=== PATIENT | male | born 1945 | race Caucasian/White ===

== ENCOUNTER 2016-08-06 15:59 | Inpatient (IN) ==
[2016-08-06] MEDS ORDERED: PANTOPRAZOLE 40 MG VIAL IV STA (17:24)
[2016-08-06] MEDS ORDERED: SODIUM CHLORIDE 0.9% 500 ML IV STA (17:24)
[2016-08-06] MEDS ORDERED: ONDANSETRON 4 MG/2 ML VIAL IV STA (17:24)
[2016-08-06 17:28] LABS: Basophils # 0.1 10*3/uL (0.0-0.2); Basophils % 0.8 % (0.0-0.8); Eosinophils # 0.3 10*3/uL (0.0-0.87); Hemoglobin 14.2 GM/DL (14.0-18.0); Immature Granulocytes % 0.3 %; Immature Granulocytes Absolute 0.02 #; Lymphocytes # 2.2 10*3/uL (1.4-4.0); Lymphocytes % 33.8 % (21.2-54.2); Mean Corpuscular HGB Conc 34.6 GM/DL (32-36); Mean Corpuscular Hemoglobin 30 PG (27-34); Mean Corpuscular Volume 87.2 FL (87-102); Mean Platelet Volume 10.8 FL (9.6-12.0); Monocytes # 0.5 10*3/uL (0.11-0.8); Monocytes % 7.3 % (1.7-12.7); Neutrophils # 3.5 10*3/uL (1.4-7.4); Neutrophils % 53.8 % (38.7-73.9); Platelet Count 230 T/CUMM (130-400); Red Cell Distribution Width 13.7 % (9.3-17.3); White Blood Count 6.5 T/CUMM (4-12)
[2016-08-06] MEDS ORDERED: ONDANSETRON 4 MG/2 ML VIAL ONE (17:36)
[2016-08-06] MEDS ORDERED: PANTOPRAZOLE 40 MG VIAL IV ONE (17:36)
[2016-08-06 17:41] LABS: INR 2.7
[2016-08-06 17:43] LABS: PT Patient Result 29.9 SECS
--- NOTE | 2016-08-06 17:51 | Emergency Department Note ---
IAbdullahi Kasabria, am scribing for, and in the presence of, Luke Reed MD 17:28. Derek Rivas Charles R, MD, personally performed the services described in this documentation, ascribed by Ivan Fernando in my presence, and it is both accurate and complete [id number] . Arrival - Arrival Chief Complaint: GI Bleed/Rectal Stated Complaint: passing blood ED Nursing Triage Note: THERAPUETIC INR YESTERDAY, ON COUMADIN FOR PE, ACUTE ONSET OF CONSTANT RECTAL BLEEDING Mode of Arrival: Ambulatory Limitations: No Limitations Source: Patient Time Seen by Provider: 08/06/16 17:13 - History of Present Illness HPI Narrative: This is a 71 y/o white male presenting to the ED with c/o rectal bleeding that onset this morning. Pt states he was using the bathroom and he thought it was watery diarrhea but it was bright red blood when he looked in the toilet. Pt was diagnosed with internal hemorrhoids. Family states the pt was dizzy earlier and while in the waiting room. He is taking Coumadin for his PE that was found 2 months ago. Therapeutic INR was 3.8 yesterday. He denies nausea, vomiting, vision change, DAUGHERTY, abdominal pain, back pain, and dysuria. His PMHx is consistent with prostate problems, hypglycemia, and PE. Consistency: constant Severity: moderate Allergies/Adverse Reactions: Allergies Allergy/AdvReac Type Severity Reaction Status Date / Time Penicillins Allergy Verified 11/14/15 09:52 Home Medications: Home Medications Medication Instructions Recorded Confirmed Type ALPRAZolam [Xanax] 1 mg PO TID PRN 07/22/14 08/06/16 History Oxycodone HCl/Acetaminophen 1 each PO Q6H PRN 07/22/14 08/06/16 History [Percocet 10-325 mg Tablet] Linaclotide [Linzess] 290 mcg PO DAILY 05/15/16 08/06/16 History Tamsulosin [Flomax] 0.4 mg PO BID 05/15/16 08/06/16 History Warfarin [Coumadin] 2.5 mg PO QOTHER DAY@1800 08/06/16 08/06/16 History Warfarin [Coumadin] 5 mg PO QOTHER DAY@1800 08/06/16 08/06/16 History Review of System - Review of System 12 point system: reviewed and no additional remarkable complaints except as stated - Review of System Constitutional: Absent: chills, fever, weakness Eyes: Absent: vision change Head/Ears/Nose/Throat: Absent: nasal drainage Respiratory: Absent: cough, wheezing Cardiovascular: Absent: chest pain, dyspnea on exertion Gastrointestinal: Present: hematochezia. Absent: abdominal pain, nausea, vomiting Genitourinary male: Absent: dysuria Musculoskeletal: Absent: arm pain, back pain, leg pain, neck pain Skin: Absent: rash Neurological: Present: vertigo. Absent: headache, weakness, numbness, confusion Psychiatric: Absent: anxiety Endocrine: Absent: fatigue Hematological/Lymphatic: Absent: easy bleeding Allergic/Immunologic: Absent: facial swelling Medical,Surgical,& Family Hx - Medical History Cardio: No history of: CAD, Hypertension Psychological: History of: Anxiety Disorders Neurology: No history of: Seizures HEENT: History of: Eye Problem (cataracts removed), HEENT Problems (sinus; polyps in nose) Endocrine: History of: Endocrine Problems (hypoglycemia) No history of: Diabetes Mellitus (IDDM), Diabetes Mellitus (NIDDM), Dyslipidemia, Thyroid Disorder Respiratory: History of: Pulmonary Embolism Genitourinary: History of: Prostate Problems Gastrointestinal: History of: Diverticulitis/ Diverticulosis, GERD, Hemorrhoids Comment Only: GI Problems (hiatal hernia) Musculoskeletal: History of: Back/Neck Problems, Musculoskeletal Problems ( crushed right foot) Other: No history of: Anesthesia Reactions - Surgical History Cardiac Surgeries: Patient Denies: Cardiac Catheterization HEENT Surgeries: Surgical HX of: Eye Surgery (cataracts), Tonsilectomy & Adenoidectomy Abdominal Surgeries: Surgical HX of: Appendectomy, Cholecystectomy, Colonoscopy Patient denies: EGD Reproductive Surgeries: Patient denies;: Prostate Surgery Orthopedic Surgeries: Surgical HX of;: Orthopedic Surgery (rtc repair left shoulder) - Family History Family History: Reports;: Family Diabetes (daughter, father), Family Heart Disease (mother, father) Denies;: Family Anesthesia Reaction, Family Cancer, Family Hypertension, Family Psychiatric Problems, Family Stroke - Social History Smoking Status: Never smoker Exam Vital Signs: Vital Signs Temperature 98.4 F 08/06/16 17:30 Pulse Rate 65 08/06/16 17:30 Respiratory Rate 18 08/06/16 17:30 Blood Pressure 145/87 08/06/16 17:30 O2 Sat by Pulse Oximetry 95 08/06/16 16:08 - General General appearance: alert, in no apparent distress - Head Head exam: Present: atraumatic, normocephalic, normal inspection - Eye Eye exam: Present: normal appearance, PERRL, EOMI - ENT ENT exam: Present: normal exam, normal oropharynx, mucous membranes moist, TM's normal bilaterally, normal external ear exam - Neck Neck exam: Present: normal inspection, full ROM, trachea midline. Absent: tenderness - Chest Chest inspection: Present: normal inspection, symmetric chest wall rise. Absent : tenderness - Respiratory Respiratory exam: Present: normal lung sounds bilaterally - Cardiovascular Cardiovascular exam: Present: regular rate, normal rhythm, normal heart sounds - Abdominal Exam Abdominal exam: Present: soft, normal bowel sounds. Absent: distention, tenderness - Rectal Exam Rectal exam: Present: heme (+) stool, hemorrhoids (one internal ) - Extremities Exam Extremities exam: Present: normal inspection, full ROM, normal capillary refill. Absent: tenderness, pedal edema, calf tenderness - Back Exam Back exam: Present: normal inspection, full ROM. Absent: tenderness - Neurological Exam Neurological exam: Present: alert, oriented X3, CN II-XII intact, normal gait, reflexes normal - Psychiatric Psychiatric exam: Present: normal affect, normal mood - Skin Skin exam: Present: warm, dry, intact, normal color. Absent: rash, diaphoresis Course - Consultations Consultation #1: Hospitalist will admit patient Time: 17:58 Results - Labs CBC & BMP: 08/06/16 17:22 Lab Results: I have reviewed the patients labs Disposition Clinical Impression: Chronic anticoagulation, History of PE, Generalized weakness, Lower GI bleed, Elevated INR Case discussed with: patient, patient's family Disposition: Still a Patient Condition: Stable Time of Disposition: 18:01
--- NOTE | 2016-08-06 17:53 | XRay Report ---
XR chest 1V portable Indication: Shortness of breath Comparison: Chest x-ray 07/01/2016 CT chest 05/16/2016. Technique: Portable AP chest was performed. Findings: The heart size appears within normal limits. The mediastinal contour and hilar structures demonstrate no significant abnormalities. Focal airspace opacification lower right chest has changed little since comparison study and could reflect evidence of asymmetric nipple shadow, focal atelectasis or other focal airspace disease including scarring.. Bones and soft tissues demonstrate no evidence of acute pathology. Impression: 1. Small focus of airspace opacification suggested in the lower right chest has changed little since the comparison radiograph. Lungs otherwise are clear and demonstrate no evidence of acute pathology. 2. Pulmonary vasculature appears fairly symmetric. There are no suggested oligemic regions of the lung. 08/06/2016 5:48 PM PROCEDURE INTERPRETED AT [facility] DEPARTMENT OF RADIOLOGY Final Report Signed by: Dr. Bright Acevedo
--- NOTE | 2016-08-06 17:54 | XRay Report ---
XR abdomen complete w decub Indication: Abdominal pain Comparison: Abdominal series 05/16/2016 Technique: Supine AP abdomen as well as left lateral decubitus image of the abdomen was submitted. Findings: Lung bases are clear. No free intraperitoneal air is suggested. Liver is upper limits of normal in size. No splenomegaly is suggested.. The bowel gas pattern demonstrates no evidence of acute pathology. Bones and soft tissues demonstrate no evidence of acute pathology. Scoliotic deformity of the upper lumbar spine is stable. Surgical absence of the gallbladder appears stable. Impression: 1. No active process is demonstrated within the abdomen or pelvis. Stable appearance of abdomen and pelvic contents since comparison. 08/06/2016 5:50 PM PROCEDURE INTERPRETED AT [facility] DEPARTMENT OF RADIOLOGY Final Report Signed by: Dr. Bright Acevedo
[2016-08-06 18:06] LABS: Alanine Aminotransferase 17 U/L (16-61); Alkaline Phosphatase 95 U/L (45-117); Aspartate Amino Transferase 15 U/L (0-37); Blood Urea Nitrogen 13 MG/DL (7-18); Calcium 8.8 MG/DL (8.5-10.1); Glucose 93 MG/DL (74-106); Magnesium 2.5 MG/DL (1.8-2.4); Osmolality,Calculated 278.4 MOS/KG (273-304); Potassium 3.9 MMOL/L (3.5-5.1); Sodium 140 MMOL/L (136-145); Total Protein 7.4 G/DL (6.4-8.3); Troponin I Only < 0.015 NG/ML (0.00-0.045)
--- NOTE | 2016-08-06 18:22 | Hospitalist History & Physical ---
Assessment and Plan (1) Chronic anticoagulation Status: Acute Assessment and plan: INR on admission at 2.7; a significant decline from 3.8 on yesterday. Will recheck INR in AM. Monitor for further episodes of melena. Current Visit: Yes (2) Lower GI bleed Status: Acute Assessment and plan: Although, H/H is stable at 14.2/41.0; we will obtain serial H/H. Will transfuse if needed. Current Visit: Yes History of Present Illness Chief complaint: rectal bleeding History of present illness: This is a very pleasant 71 year old male that presented to the ED at [facility] for evaluation of rectal bleeding. The patient has a very complex medical history significant for pulmonary embolism, benign prostatic hypertrophy, diverticulitis, hypoglycemia, and internal hemmohorrids. The patent reports an onset of the presenting symptoms on this morning when he was having a bowel movement. He reports that is was bright red in color and watery in consistency. In addition, the patient reports an episode of vertigo awhile afterwards. In recent months, the patient was diagnosed with a pulmonary embolism and is currently taking coumadin. He was seen by his PCP on yesterday and reports that his INR was 3.8. He became concerned and came to the ED for further evaluation. Digital rectal examination was positive for the presence of occult blood. Labs were obtained which noted his INR at 2.7 and hemoglobin at 14.0, and hematacrit of 41.0.; labs were essentially unremarkable. After brief discussion with both Dr. Reed and Dr. Fontenot, the patient will be admitted to the hospitalist service for continuation of care. Home Medications Medication Instructions Recorded Confirmed Type ALPRAZolam [Xanax] 1 mg PO TID PRN 07/22/14 08/06/16 History Oxycodone HCl/Acetaminophen 1 each PO Q6H PRN 07/22/14 08/06/16 History [Percocet 10-325 mg Tablet] Linaclotide [Linzess] 290 mcg PO DAILY 05/15/16 08/06/16 History Tamsulosin [Flomax] 0.4 mg PO BID 05/15/16 08/06/16 History Warfarin [Coumadin] 2.5 mg PO QOTHER DAY@1800 08/06/16 08/06/16 History Warfarin [Coumadin] 5 mg PO QOTHER DAY@1800 08/06/16 08/06/16 History Allergies Allergy/AdvReac Type Severity Reaction Status Date / Time Penicillins Allergy Verified 11/14/15 09:52 Medical,Surgical,& Family Hx - Medical History Cardio: No history of: CAD, Hypertension Psychological: History of: Anxiety Disorders Neurology: No history of: Seizures HEENT: History of: Eye Problem (cataracts removed), HEENT Problems (sinus; polyps in nose) Endocrine: History of: Endocrine Problems (hypoglycemia) No history of: Diabetes Mellitus (IDDM), Diabetes Mellitus (NIDDM), Dyslipidemia, Thyroid Disorder Respiratory: History of: Pulmonary Embolism Genitourinary: History of: Prostate Problems Gastrointestinal: History of: Diverticulitis/ Diverticulosis, GERD, Hemorrhoids Comment Only: GI Problems (hiatal hernia) Musculoskeletal: History of: Back/Neck Problems, Musculoskeletal Problems ( crushed right foot) Other: No history of: Anesthesia Reactions - Surgical History Cardiac Surgeries: Patient Denies: Cardiac Catheterization HEENT Surgeries: Surgical HX of: Eye Surgery (cataracts), Tonsilectomy & Adenoidectomy Abdominal Surgeries: Surgical HX of: Appendectomy, Cholecystectomy, Colonoscopy Patient denies: EGD Reproductive Surgeries: Patient denies;: Prostate Surgery Orthopedic Surgeries: Surgical HX of;: Orthopedic Surgery (rtc repair left shoulder) - Family History Family History: Reports;: Family Diabetes (daughter, father), Family Heart Disease (mother, father) Denies;: Family Anesthesia Reaction, Family Cancer, Family Hypertension, Family Psychiatric Problems, Family Stroke - Social History Smoking Status: Never smoker Exam - Constitutional Vitals: Period Temp Pulse Resp BP Sys/Noel Pulse Ox Last 24 Hr 98.4 F-98.4 F 65-65 16-18 145-145/87-87 95 General appearance: normal weight, no acute distress - Head Head exam: Present: normal inspection, normocephalic, atraumatic - Eye Eye exam: Present: EOMI. Absent: conjunctival injection Pupils: Present: TD, normal accommodation - ENT ENT exam: Present: normal exam, normal external ear exam, normal oropharynx - Neck Neck exam: Present: normal inspection. Absent: lymphadenopathy, meningismus, thyromegaly - Respiratory Respiratory exam: Present: clear to auscultation bilaterally. Absent: rales, rhonchi, stridor, wheezes - Cardiovascular Cardiovascular exam: Present: regular rate and rhythm. Absent: carotid bruit, diastolic murmur, gallop, JVD, rubs, systolic murmur - GI/Abdominal GI/Abdominal exam: Present: normal bowel sounds, soft. Absent: firm, guarding - Extremities Exam Extremities exam: Present: normal inspection, normal capillary refill, full ROM. Absent: calf tenderness, edema - Back Exam Back exam: Present: normal inspection - Neurological Exam Neurological exam: Present: alert, oriented X3, CN II-XII intact - Psychiatric Psychiatric exam: Present: normal affect, normal mood - Skin Skin exam: Present: normal color, warm, dry Results - Labs CBC & BMP: 08/06/16 17:22 08/06/16 17:22 Lab Results: I have reviewed the past 24 hour labs
[2016-08-06] MEDS ORDERED: MORPHINE 2 MG/1 ML SYRINGE IV PRN (19:31)
[2016-08-06] MEDS ORDERED: ZALEPLON 5 MG CAPSULE PO PRN (19:31)
[2016-08-06] MEDS ORDERED: ONDANSETRON 4 MG/2 ML VIAL IV PRN (19:31)
[2016-08-06] MEDS ORDERED: ACETAMINOPHEN 325 MG TABLET PO PRN (19:31)
[2016-08-06] MEDS: TAMSULOSIN 0.4 MG CAPSULE PO SCH (20:16)
[2016-08-06] MEDS: FAMOTIDINE 20 MG/2 ML VIAL IV SCH (20:16)
[2016-08-06] MEDS: ALPRAZolam 0.5 MG TABLET PO PRN (20:18)
[2016-08-06] MEDS: SODIUM CHLORIDE 0.9% 1,000 ML IV SCH (20:18)
[2016-08-06] MEDS ORDERED: LABETALOL 20 MG/4 ML SYRINGE IV PRN (21:26)
[2016-08-07 04:19] LABS: Basophils % 0.8 % (0.0-0.8); Eosinophils # 0.3 10*3/uL (0.0-0.87); Eosinophils % 6.7 % (0.00-10.9); Hematocrit 35.9 VOL% (42.0-52.0); Hemoglobin 12.3 GM/DL (14.0-18.0); Immature Granulocytes % 0.2 %; Immature Granulocytes Absolute 0.01 #; Lymphocytes # 1.9 10*3/uL (1.4-4.0); Mean Corpuscular HGB Conc 34.3 GM/DL (32-36); Mean Corpuscular Hemoglobin 30 PG (27-34); Mean Corpuscular Volume 86.9 FL (87-102); Mean Platelet Volume 11.1 FL (9.6-12.0); Monocytes # 0.4 10*3/uL (0.11-0.8); Monocytes % 8.5 % (1.7-12.7); Neutrophils # 2.3 10*3/uL (1.4-7.4); Neutrophils % 45.8 % (38.7-73.9); Platelet Count 202 T/CUMM (130-400); Red Blood Count 4.13 MC/CUMM (3.8-5.5); Red Cell Distribution Width 13.4 % (9.3-17.3)
[2016-08-07 04:28] LABS: INR 2.6
[2016-08-07 04:40] LABS: PT Patient Result 28.8 SECS
[2016-08-07 04:55] LABS: Calcium 7.7 MG/DL (8.5-10.1); Magnesium 2.2 MG/DL (1.8-2.4); Osmolality,Calculated 281.1 MOS/KG (273-304); Potassium 3.6 MMOL/L (3.5-5.1)
[2016-08-07] MEDS: LINACLOTIDE 145 MCG CAPSULE PO SCH (08:58)
[2016-08-07] MEDS: FAMOTIDINE 20 MG/2 ML VIAL IV SCH ×2 (08:58→20:39)
[2016-08-07] MEDS: TAMSULOSIN 0.4 MG CAPSULE PO SCH ×2 (08:58→20:39)
[2016-08-07] MEDS: PANTOPRAZOLE 40 MG TABLET PO SCH (08:58)
--- NOTE | 2016-08-07 09:02 | Gastrointestinal Consult Note ---
Assessment and Plan - Time spent with patient Time spent with patient: Greater than 30 minutes (1) Lower GI bleed Status: Acute Current Visit: Yes (2) Other specified counseling Status: Acute Current Visit: Yes History of Present Illness History of present illness: Mr. Gurrola is a 71 year old male Home Medications Medication Instructions Recorded Confirmed Type ALPRAZolam [Xanax] 1 mg PO TID PRN 07/22/14 08/06/16 History Oxycodone HCl/Acetaminophen 1 each PO Q6H PRN 07/22/14 08/06/16 History [Percocet 10-325 mg Tablet] Linaclotide [Linzess] 290 mcg PO DAILY 05/15/16 08/06/16 History Tamsulosin [Flomax] 0.4 mg PO BID 05/15/16 08/06/16 History Warfarin [Coumadin] 2.5 mg PO QOTHER DAY@1800 08/06/16 08/06/16 History Warfarin [Coumadin] 5 mg PO QOTHER DAY@1800 08/06/16 08/06/16 History Allergies Allergy/AdvReac Type Severity Reaction Status Date / Time Penicillins Allergy Verified 11/14/15 09:52 Medical,Surgical,& Family Hx - Medical History Cardio: No history of: CAD, Hypertension Psychological: History of: Anxiety Disorders Neurology: No history of: Seizures HEENT: History of: Eye Problem (cataracts removed), HEENT Problems (sinus; polyps in nose) Endocrine: History of: Endocrine Problems (hypoglycemia) No history of: Diabetes Mellitus (IDDM), Diabetes Mellitus (NIDDM), Dyslipidemia, Thyroid Disorder Respiratory: History of: Pulmonary Embolism Genitourinary: History of: Prostate Problems (enlarged) Gastrointestinal: History of: Diverticulitis/ Diverticulosis, GERD, Hemorrhoids Comment Only: GI Problems (hiatal hernia) Musculoskeletal: History of: Back/Neck Problems, Musculoskeletal Problems ( crushed right foot) Other: No history of: Anesthesia Reactions - Surgical History Cardiac Surgeries: Patient Denies: Cardiac Catheterization HEENT Surgeries: Surgical HX of: Eye Surgery (cataracts), Tonsilectomy & Adenoidectomy Patient denies: Thyroid Surgery Abdominal Surgeries: Surgical HX of: Appendectomy, Cholecystectomy, Colonoscopy Patient denies: EGD Reproductive Surgeries: Patient denies;: Prostate Surgery Orthopedic Surgeries: Surgical HX of;: Orthopedic Surgery (rtc repair left shoulder) - Family History Family History: Reports;: Family Diabetes (daughter, father), Family Heart Disease (mother, father) Denies;: Family Anesthesia Reaction, Family Cancer, Family Hypertension, Family Psychiatric Problems, Family Stroke - Social History Smoking Status: Never smoker Frequency of Alcohol Use: None Type of Drug Use: None Exam - Constitutional Vitals: Period Temp Pulse Resp BP Sys/Noel Pulse Ox Last 24 Hr 97.6 F-97.8 F 53-59 18-20 122-170/74-102 94-98 Results - Labs CBC & BMP: 08/07/16 03:40 08/07/16 03:40 Quality Measures - VTE Contraindication to Pharmacological VTE Prophylaxis: Already on Theraputic Agent , No Prophylaxis Needed - Stroke Symptom Onset Unknown: No Note Addendum: PLEASE NOTE -- automatic citation of patient information is unavoidable in this electronic note. I have made a reasonable effort to review the information cited , but it is not a part of my evaluation, impression, or recommendation unless specifically discussed in the dictated text that follows. As well, voice recognition software was used in the creation of this clinical note. Reasonable effort was made to identify and correct gross errors. Despite proofreading, errors in licensed home inspector may be present, including nonsense verbiage at times. If you encounter such an error, please contact me at [phone] for discussion and correction. -- Hector Chief complaint: gastrointestinal bleeding History of present illness: This is a new patient, a 71-year-old male seen by consultation for evaluation of rectal bleeding. The patient is admitted to the hospitalist service under the care of Dr. Ferraro with a primary diagnosis of lower gastrointestinal bleeding complicated by pharmacologic anticoagulation. The patient was admitted through the emergency department yesterday with primary complaint of bright red blood per rectum beginning yesterday morning. Evaluation at that time revealed hemoglobin greater than 14 g /dL and INR of 2.7. Since his admission no bowel movements have been recorded. He has been treated with crystalloid resuscitation and, in that setting, hemoglobin has dropped to just over 12 g/dL. He has a personal history of pulmonary embolus which is the indication for pharmacologic anticoagulation and has generally been in the therapeutic range on Coumadin. He previously had colonoscopy about six months ago and was told that he has both diverticulosis and hemorrhoids. He has not previously had significant gastrointestinal bleeding. He is comfortable at present. Patient denies fever, chills, night sweats, rigors, headache, dizziness, neck pain, visual changes, redness of the eyes, dysphagia, odynophagia, difficulty chewing, chest pain, shortness of breath, abdominal pain, weight loss, nausea, vomiting, regurgitation, hematemesis, diarrhea, proctalgia, constipation, dysuria, skin changes, temperature regulation issues, flushing, mental status change, numbness/weakness in the extremities, yellowing of the eyes/skin, cutaneous eruptions, family history of gastrointestinal cancer and colon polyps , and other complaints in general. Review of systems: 12 point review of systems was negative except as documented above. Outpatient medications: Xanax, Percocet, Linzess, Flomax, Coumadin Inpatient medications: Tylenol, Xanax, Pepcid, Holt, labetalol, incest, morphine, Zofran, Percocet, Protonix, normal saline infusion, Flomax, Sonata Past Medical History: anxiety disorder, nasal polyps, hypoglycemia, pulmonary embolism, prostate issues, diverticulitis/diverticulosis, gastroesophageal reflux disease, hemorrhoids, hiatus hernia, back and neck pain, prior lower extremity injury Social history: negative tobacco. Negative alcohol Family history: no gastrointestinal cancers Physical examination: Vital Signs: Current vital signs reviewed and documented above. General Appearance: well-appearing. Not acutely ill. Head: Normocephalic. Neck: Palpation of the neck revealed no abnormalities. Eyes: No scleral icterus. No scleral injection. No conjunctival pallor. Oral Cavity: Odor of breath was normal. No drooling was observed. Lips showed no abnormalities. Floor of the mouth showed no abnormalities. Pharynx: Oropharynx was normal. Lungs: Respiration rhythm and depth was normal. Cardiovascular: Heart rate and rhythm were normal. No murmurs were appreciated. Abdomen: abdomen was not distended. Abdominal palpation revealed no tenderness and no hepatosplenomegaly. Ascites was not discovered. Abdominal auscultation revealed positive bowel sounds. Musculoskeletal System: Musculoskeletal system was grossly normal. Neurological: level of consciousness was normal. Speech was normal. Skin: General appearance was normal. Color and pigmentation were normal. No skin lesions. Laboratory: white blood count 5.0, hemoglobin 12.3, hematocrit 35.9, platelets 202, INR 2.6 Radiology: reviewed Impressions: 1. Hematochezia -- the differential diagnosis includes diverticular bleeding, infectious/inflammatory enterocolitis, arteriovenous malformation, hemorrhoidal bleeding, colon polyps (including cancer), and upper gastrointestinal bleeding. I recommend serial hemoglobin and hematocrit monitoring with transfusion as indicated. I recommend continued crystalloid resuscitation as indicated. I recommend intravenous proton pump inhibitor. Patient may need colonoscopy with timing dependent on clinical progress. If bleeding continues, this will likely need to be done during this admission. If not, we could consider outpatient colonoscopy once he is adequately resuscitated and transfused. 2. Other specified counseling -- The patient was seen for greater than 30 minutes. The patient was counseled for greater than 50% of this time regarding differential diagnosis, likely diagnosis, diagnostic and therapeutic alternatives, risks/benefits/alternatives of medications and procedures, and plan of care generally. The patient expressed understanding and wishes to proceed. Recommendations: -- aggressive crystalloid resuscitation -- transfusion as indicated -- serial hemoglobin and hematocrit monitoring -- colonoscopy with timing dependent on clinical progress -- thank you for consultation. We will continue to follow with you.
[2016-08-07] MEDS: ALPRAZolam 0.5 MG TABLET PO PRN ×2 (15:41→23:35)
--- NOTE | 2016-08-07 17:01 | Hospitalist Progress Note ---
Assessment and Plan - Time spent with patient Time spent with patient: Greater than 30 minutes (1) Chronic anticoagulation Status: Acute Assessment and plan: For PE, been on anticoagulation about 2 months. Current Visit: Yes (2) Lower GI bleed Status: Acute Assessment and plan: Likely hemorrhoidal. Defer to GI. Current Visit: Yes Hospitalist: Subjective Interval history: Reports no recurrence in bleeding. Patient would like to stay for further evaluation of rectal bleeding. Exam - Constitutional Vitals: Period Temp Pulse Resp BP Sys/Noel Pulse Ox Last 24 Hr 97.4 F-98.5 F 53-69 18-20 122-170/74-102 92-98 General appearance: no acute distress - Head Head exam: Present: normocephalic, atraumatic - Eye Eye exam: Present: EOMI Pupils: Present: TD - ENT ENT exam: Present: normal exam - Neck Neck exam: Present: normal inspection - Respiratory Respiratory exam: Present: clear to auscultation bilaterally. Absent: rhonchi, wheezes - Cardiovascular Cardiovascular exam: Present: regular rate and rhythm. Absent: gallop, rubs, systolic murmur - GI/Abdominal GI/Abdominal exam: Present: normal bowel sounds, soft. Absent: distended, firm , guarding, tenderness, rebound - Extremities Exam Extremities exam: Present: normal inspection. Absent: calf tenderness, edema Results - Labs CBC & BMP: 08/07/16 03:40 08/07/16 03:40 Lab Results: I have reviewed the past 24 hour labs Quality Measures - VTE Contraindication to Pharmacological VTE Prophylaxis: Already on Theraputic Agent , No Prophylaxis Needed - Stroke Symptom Onset Unknown: No
[2016-08-07] MEDS: SODIUM CHLORIDE 0.9% 1,000 ML IV SCH (18:11)
[2016-08-08] MEDS: SODIUM CHLORIDE 0.9% 1,000 ML IV SCH (01:31)
[2016-08-08 05:17] LABS: Basophils # 0.1 10*3/uL (0.0-0.2); Basophils % 1.1 % (0.0-0.8); Eosinophils # 0.3 10*3/uL (0.0-0.87); Eosinophils % 6.2 % (0.00-10.9); Hematocrit 36.5 VOL% (42.0-52.0); Hemoglobin 12.2 GM/DL (14.0-18.0); Immature Granulocytes % 0.2 %; Immature Granulocytes Absolute 0.01 #; Lymphocytes # 2.1 10*3/uL (1.4-4.0); Lymphocytes % 37.9 % (21.2-54.2); Mean Corpuscular HGB Conc 33.4 GM/DL (32-36); Mean Corpuscular Hemoglobin 29 PG (27-34); Mean Corpuscular Volume 87.5 FL (87-102); Monocytes # 0.4 10*3/uL (0.11-0.8); Monocytes % 7.6 % (1.7-12.7); Neutrophils # 2.6 10*3/uL (1.4-7.4); Platelet Count 203 T/CUMM (130-400); Red Blood Count 4.17 MC/CUMM (3.8-5.5); Red Cell Distribution Width 13.4 % (9.3-17.3); White Blood Count 5.5 T/CUMM (4-12)
[2016-08-08 05:47] LABS: Calcium 7.8 MG/DL (8.5-10.1); Potassium 3.6 MMOL/L (3.5-5.1)
[2016-08-08] MEDS: TAMSULOSIN 0.4 MG CAPSULE PO SCH ×2 (08:36→20:14)
[2016-08-08] MEDS: PANTOPRAZOLE 40 MG TABLET PO SCH (08:36)
[2016-08-08] MEDS: FAMOTIDINE 20 MG/2 ML VIAL IV SCH ×2 (08:36→20:14)
[2016-08-08] MEDS: LINACLOTIDE 145 MCG CAPSULE PO SCH (08:37)
--- NOTE | 2016-08-08 08:55 | Gastrointestinal Progress Note ---
Assessment and Plan (1) Lower GI bleed Status: Acute Current Visit: Yes (2) Other specified counseling Status: Acute Current Visit: Yes Exam (Progress Note) - Constitutional Vitals: Period Temp Pulse Resp BP Sys/Noel Pulse Ox Last 24 Hr 97.1 F-98.5 F 59-72 18-20 124-156/66-93 92-98 Results - Labs CBC & BMP: 08/08/16 04:53 08/08/16 04:53 Note Addendum: PLEASE NOTE -- automatic citation of patient information is unavoidable in this electronic note. I have made a reasonable effort to review the information cited , but it is not a part of my evaluation, impression, or recommendation unless specifically discussed in the dictated text that follows.~ As well, voice recognition software was used in the creation of this clinical note. Reasonable effort was made to identify and correct gross errors. Despite proofreading, errors in aviation project manager may be present, including nonsense verbiage at times. If you encounter such an error, please contact me at for discussion and correction. -- Hector Chief complaint: gastrointestinal bleeding History of present illness: This is a 71-year-old male seen for follow-up of rectal bleeding. No bowel movements have been documented overnight. Blood counts are stable. The patient reports feeling well. Review of systems: 12 point review of systems was negative except as documented above. Medications: Tylenol, Xanax, Pepcid, [place], labetalol, incest, morphine, Zofran , Percocet, Protonix, normal saline infusion, Flomax, [place] Physical examination:~ Vital Signs: Current vital signs reviewed and documented above.~ General Appearance: well-appearing. Not acutely ill. Head: Normocephalic.~ Neck: Palpation of the neck revealed no abnormalities.~ Eyes: No scleral icterus.~ No scleral injection.~ No conjunctival pallor.~ Oral Cavity: Odor of breath was normal. No drooling was observed. Lips showed no abnormalities. Floor of the mouth showed no abnormalities.~ Pharynx: Oropharynx was normal.~ Lungs: Respiration rhythm and depth was normal.~ Cardiovascular: Heart rate and rhythm were normal. No murmurs were appreciated.~ Abdomen: abdomen was not distended. Abdominal palpation revealed no tenderness and no hepatosplenomegaly. Ascites was not discovered. Abdominal auscultation revealed positive bowel sounds. Musculoskeletal System: Musculoskeletal system was grossly normal.~ Neurological: level of consciousness was normal. Speech was normal. Skin: General appearance was normal. Color and pigmentation were normal. No skin lesions. ~ Laboratory: hemoglobin 12.2, hematocrit 36.5 Radiology: reviewed Impressions:~ 1. Hematochezia -- the differential diagnosis includes diverticular bleeding, infectious/inflammatory enterocolitis, arteriovenous malformation, hemorrhoidal bleeding, colon polyps (including cancer), and upper gastrointestinal bleeding. I recommend serial hemoglobin and hematocrit monitoring with~ transfusion as indicated. I recommend continued crystalloid resuscitation as indicated. I recommend intravenous proton pump inhibitor. After discussion with patient, we will plan on colonoscopy tomorrow. We will do a bowel prep this evening. 2. Other specified counseling --~ The patient was seen for greater than 30 minutes.~ The patient was counseled for greater than 50% of this time regarding differential diagnosis, likely diagnosis, diagnostic and therapeutic alternatives, risks/benefits/alternatives of medications and procedures, and plan of care generally.~ The patient expressed understanding and wishes to proceed. Recommendations: -- aggressive crystalloid resuscitation -- transfusion as indicated -- serial hemoglobin and hematocrit monitoring -- colonoscopy tomorrow -- thank you for consultation. Dr. Barger will assume G.I. care for this patient tomorrow.
[2016-08-08] MEDS: ALPRAZolam 0.5 MG TABLET PO PRN ×2 (11:46→20:14)
[2016-08-08] MEDS ORDERED: BISACODYL 5 MG TABLET PO ONE (12:00)
--- NOTE | 2016-08-08 12:04 | Hospitalist Progress Note ---
Assessment and Plan - Time spent with patient Time spent with patient: Greater than 30 minutes (1) Chronic anticoagulation Status: Acute Assessment and plan: For PE, been on anticoagulation about 2 months. Holding anticoagulation. Current Visit: Yes (2) Lower GI bleed Status: Acute Assessment and plan: Likely hemorrhoidal. Defer to GI. Current Visit: Yes Hospitalist: Subjective Interval history: No complaints or overnight events. Denies BRBPR, melena or hematochezia. Exam - Constitutional Vitals: Period Temp Pulse Resp BP Sys/Noel Pulse Ox Last 24 Hr 97.1 F-98.5 F 59-72 18-59 128-156/66-95 93-98 General appearance: normal weight, no acute distress - Head Head exam: Present: normocephalic, atraumatic - Eye Eye exam: Present: EOMI Pupils: Present: TD - ENT ENT exam: Present: normal exam - Neck Neck exam: Present: normal inspection - Respiratory Respiratory exam: Present: clear to auscultation bilaterally. Absent: rhonchi, wheezes - Cardiovascular Cardiovascular exam: Present: regular rate and rhythm. Absent: gallop, rubs, systolic murmur - GI/Abdominal GI/Abdominal exam: Present: normal bowel sounds, soft. Absent: distended, firm , guarding, tenderness, rebound - Extremities Exam Extremities exam: Present: normal inspection. Absent: calf tenderness, edema Results - Labs CBC & BMP: 08/08/16 04:53 08/08/16 04:53 Lab Results: I have reviewed the past 24 hour labs Quality Measures - VTE Contraindication to Pharmacological VTE Prophylaxis: Already on Theraputic Agent , No Prophylaxis Needed - Stroke Symptom Onset Unknown: No
[2016-08-08] MEDS ORDERED: POLYETHYLENE GLYCOL 3350/ELECTROLYTES 4,000 ML BOTTLE PO ONE (18:00)
[2016-08-08] MEDS ORDERED: MAGNESIUM CITRATE 300 ML BOTTLE PO ONE (21:58)
[2016-08-09 03:03] LABS: Basophils # 0.1 10*3/uL (0.0-0.2); Basophils % 0.8 % (0.0-0.8); Eosinophils # 0.3 10*3/uL (0.0-0.87); Eosinophils % 4.8 % (0.00-10.9); Hematocrit 38.6 VOL% (42.0-52.0); Hemoglobin 12.9 GM/DL (14.0-18.0); Immature Granulocytes % 0.3 %; Immature Granulocytes Absolute 0.02 #; Lymphocytes # 1.9 10*3/uL (1.4-4.0); Lymphocytes % 29.3 % (21.2-54.2); Mean Corpuscular HGB Conc 33.4 GM/DL (32-36); Mean Corpuscular Hemoglobin 29 PG (27-34); Mean Corpuscular Volume 86.9 FL (87-102); Mean Platelet Volume 11.8 FL (9.6-12.0); Monocytes # 0.5 10*3/uL (0.11-0.8); Neutrophils # 3.7 10*3/uL (1.4-7.4); Neutrophils % 56.8 % (38.7-73.9); Platelet Count 223 T/CUMM (130-400); Red Blood Count 4.44 MC/CUMM (3.8-5.5); Red Cell Distribution Width 13.4 % (9.3-17.3); White Blood Count 6.5 T/CUMM (4-12)
[2016-08-09 03:28] LABS: Calcium 8.4 MG/DL (8.5-10.1); INR 1.5; PT Patient Result 16.5 SECS; Partial Thromboplastin Time 36.2 SECS (0-40); Potassium 3.8 MMOL/L (3.5-5.1)
--- NOTE | 2016-08-09 08:00 | EKG Report ---
Stationary ECG Study [facility] Test Date: 08/09/2016 7:59:55 AM Pat Name: ROSA ISELA ABURTO Department: Room: 238 Gender: M Emergency Communications Operator: MYRIAM : 1945 Requested by: Rain Lima Order Number: [id number] Reading MD: TAI STERN Intervals [place] Rate: 54 P: 37 NH: 165 QRS: 52 QRSD: 102 T: -44 QT: 430 QTc: 415 Interpretive Statements SINUS BRADYCARDIA ST DEVIATION AND MODERATE T-WAVE ABNORMALITY, CONSIDER INFERIOR ISCHEMIA Electronically Signed On 08-09-16 11:47:22 CDT by TAI STERN [email or web address]
[2016-08-09] MEDS: PANTOPRAZOLE 40 MG TABLET PO SCH (10:12)
[2016-08-09] MEDS: LINACLOTIDE 145 MCG CAPSULE PO SCH (10:12)
[2016-08-09] MEDS: TAMSULOSIN 0.4 MG CAPSULE PO SCH ×2 (10:13→20:24)
[2016-08-09] MEDS: FAMOTIDINE 20 MG/2 ML VIAL IV SCH ×2 (10:40→21:42)
--- NOTE | 2016-08-09 10:41 | Physician Query Form ---
CLICK EDIT DOCUMENT TO SELECT QUERY ANSWER --> OK --> SIGN Radha Bond RN Clinical [place] W) [phone] (f) [phone] [email or web address]: Make your selection(s) from the choices in EACH section by typing an "x" and enter comments in the comment section. Please use your independent medical judgment in providing your response. This request does not imply that any particular answer is desired or expected. CLINICAL INDICATORS: (Providers should not edit this section) Pt. admitted with rectal bleeding. Based on documentation of "pt was diagnosed with internal hemorrhoids" and "he is taking Coumadin for his PE". INR of 2.7 on admission. Based on the above, could you clarify the appropriate diagnosis, if significant , that supports the above abnormalities and additional evaluation, monitoring, and/or treatment rendered: ( ) Rectal bleeding due to anticoagulant use ( ) Rectal bleeding not due to anticoagulant use ( ) Rectal bleeding due to internal hemorrhoids ( x) Rectal bleeding due to _diverticulosis compounded by anticoagulant use ( ) Other, please specify: ( ) Clinically unable to determine COMMENTS: PLEASE ALSO DOCUMENT RESPONSE IN PROGRESS NOTES AND/OR DISCHARGE SUMMARY Use of terms such as suspected, likely, or probable (associated with a specific diagnosis that is being evaluated, monitored, or treated as if it exists) are acceptable and can be restated in the discharge summary if not ruled out. MTDD
[2016-08-09] MEDS ORDERED: LIDOCAINE 2% 5 ML VIAL ONE (13:06)
[2016-08-09] MEDS ORDERED: PROPOFOL 200 MG/20 ML VIAL IV ONE (13:06)
[2016-08-09] MEDS ORDERED: GLYCOPYRROLATE 0.4 MG/2 ML VIAL ONE (13:06)
--- NOTE | 2016-08-09 13:10 | History and Physical Update ---
History and Physical Update - History and Physical H&P was reviewed, the patient examined and there: are no changes in the patients condition since last H&P was completed. - Physical Exam Mental Status: alert and oriented Heart: regular rate and rhythm Lung: clear to auscultation Abdomen: within normal limits Vitals: within normal limits History and Physical Changes: 71-year-old male is admitted with lower GI bleeding which occurred in the setting of Coumadin therapy with INR of 2.7. His bleeding appears to have stopped in the last 24 hours. His INR has been corrected.
--- NOTE | 2016-08-09 13:30 | Operative Note ---
Date of procedure: 08/09/16 Pre-op diagnosis: Lower GI bleeding Procedure: Procedure note: Colonoscopy Physician: Dr. Brent Barger Brief clinical abstract: Patient is a 71-year-old male admitted with lower GI bleeding on Coumadin therapy. INR has been corrected and he has had no further bleeding in over 24 hours. He has not required transfusion. Endoscopic findings: After informed consent was obtained, the patient was placed in the left lateral decubitus position. Digital rectal exam was performed with no palpable abnormalities felt. Pediatric videocolonoscope was inserted into the rectum and advanced to the cecum without difficulty. Retroflex view within the cecum was performed back to the level of the hepatic flexure. The endoscope was advanced back to the cecum and on withdrawal colonic mucosa was carefully examined. Bowel prep was of good quality. Withdrawal time was over 6 minutes duration. On withdrawal no polyps were seen. Scattered diverticuli were noted in the ascending and a large number of diverticuli in the descending and sigmoid colon. No bleeding stigmata were seen. No gross blood was noted. Vascular pattern throughout the colon appeared normal. The endoscope was withdrawn in the rectum with retroflex view showing small internal hemorrhoids. The endoscope was then removed. He appeared to tolerate the procedure well. Impression: #1 diverticulosis coli-appears to have been likely source of bleeding #2 internal hemorrhoids Plan: Advance diet. Would observe for another 24-48 hours. Would hold Coumadin for at least another 96 hours. Anesthesia: MAC Surgeon / Physician: Lincoln Barger Estimated blood loss: none Specimens: none sent Condition: stable Disposition: post procedure unit Results - Labs CBC & BMP: 08/09/16 01:47 08/09/16 01:47 Discharge Plan - Discharge Medications No Action ALPRAZolam [Xanax] 1 mg PO TID PRN PRN Reason: Anxiety Oxycodone HCl/Acetaminophen [Percocet 10-325 mg Tablet] 1 each PO Q6H PRN PRN Reason: Pain Tamsulosin [Flomax] 0.4 mg PO BID Linaclotide [Linzess] 290 mcg PO DAILY Warfarin [Coumadin] 5 mg PO SUMOWEFR Warfarin [Coumadin] 2.5 mg PO TUTHSA - Follow Up or Referral - Forms/Instructions
--- NOTE | 2016-08-09 13:37 | Anesthesia Post-Op ---
Anesthesia Post OP - Post Ansesthetic Evaluation Patient seen in post op: Yes Resp: within normal limits CV: within normal limits Mental: within normal limits Temp: within normal limits Aagu-Jj-Nebayftzk: within normal limits Nausea and Vomiting: within normal limits Pain: within normal limits
--- NOTE | 2016-08-09 13:38 | Hospitalist Progress Note ---
Assessment and Plan - Time spent with patient Time spent with patient: Greater than 30 minutes (1) Chronic anticoagulation Status: Acute Assessment and plan: History of PE. Holding anticoagulation. Current Visit: Yes (2) Lower GI bleed Status: Acute Assessment and plan: [place] to be a diverticular bleed. They recommended holding coumadin another 96 hours and to observe for 24-48 hours. Current Visit: Yes Hospitalist: Subjective Interval history: No reported bleeding since admission. Colonscopy today revealed diverticulosis and internal hemorrhoids and the source of bleeding was felt to be the diverticulosis. Exam - Constitutional Vitals: Period Temp Pulse Resp BP Sys/Noel Pulse Ox Last 24 Hr 96.6 F-98.2 F 56-73 12-20 117-172/82-106 92-98 General appearance: no acute distress - Head Head exam: Present: normocephalic, atraumatic - Eye Eye exam: Present: EOMI Pupils: Present: TD - ENT ENT exam: Present: normal exam - Neck Neck exam: Present: normal inspection - Respiratory Respiratory exam: Present: clear to auscultation bilaterally. Absent: rhonchi, wheezes - Cardiovascular Cardiovascular exam: Present: regular rate and rhythm. Absent: gallop, rubs, systolic murmur - GI/Abdominal GI/Abdominal exam: Present: normal bowel sounds, soft. Absent: distended, firm , guarding, tenderness, rebound - Extremities Exam Extremities exam: Present: normal inspection. Absent: calf tenderness, edema Results - Labs CBC & BMP: 08/09/16 01:47 08/09/16 01:47 Lab Results: I have reviewed the past 24 hour labs Quality Measures - VTE Contraindication to Pharmacological VTE Prophylaxis: Already on Theraputic Agent , No Prophylaxis Needed - Stroke Symptom Onset Unknown: No
[2016-08-09] MEDS: oxyCODONE/ACETAMINOPHEN 5-325 MG TABLET PO PRN ×2 (14:42→21:38)
[2016-08-09] MEDS: ALPRAZolam 0.5 MG TABLET PO PRN (21:38)
[2016-08-10 06:10] LABS: Basophils # 0.1 10*3/uL (0.0-0.2); Basophils % 0.8 % (0.0-0.8); Eosinophils # 0.3 10*3/uL (0.0-0.87); Eosinophils % 4.2 % (0.00-10.9); Hemoglobin 13.3 GM/DL (14.0-18.0); Immature Granulocytes % 0.4 %; Immature Granulocytes Absolute 0.03 #; Lymphocytes % 27.6 % (21.2-54.2); Mean Corpuscular HGB Conc 34.1 GM/DL (32-36); Mean Corpuscular Hemoglobin 30 PG (27-34); Mean Corpuscular Volume 87.2 FL (87-102); Mean Platelet Volume 11.2 FL (9.6-12.0); Monocytes # 0.6 10*3/uL (0.11-0.8); Monocytes % 7.6 % (1.7-12.7); Neutrophils # 4.4 10*3/uL (1.4-7.4); Neutrophils % 59.4 % (38.7-73.9); Platelet Count 204 T/CUMM (130-400); Red Blood Count 4.47 MC/CUMM (3.8-5.5); Red Cell Distribution Width 13.3 % (9.3-17.3); White Blood Count 7.4 T/CUMM (4-12)
[2016-08-10 06:46] LABS: Calcium 8.6 MG/DL (8.5-10.1); Potassium 3.7 MMOL/L (3.5-5.1)
--- NOTE | 2016-08-10 10:17 | Gastrointestinal Progress Note ---
Assessment and Plan (1) Lower GI bleed Status: Acute Assessment and plan: 08/10-No further bleeding, hgb stable at 13.3, INR 1.5. Coumadin on hold. Plan and addendum to follow by Dr Barger. Current Visit: Yes Gastroenterology - PN: Subj Interval history: CC: Lower GI bleeding Pt is seen awake and alert sitting up on side of bed. He states he is feeling well today. He has not had his Linzess this morning and states that he cannot have a bowel movement until he takes this. He does have a good appetite and is tolerating his diet well. Denies any abdominal pain, nausea or vomiting. Hemoglobin is stable at 13.3 and INR is 1.5. Patient has concerns due to he does not want to restart his Coumadin. He states that he would like to see Dr. Cuevas as soon as possible to discuss this. Abdomen is soft, nontender. ROS: Denies shortness of breath or chest pain Exam (Progress Note) - Constitutional Vitals: Period Temp Pulse Resp BP Sys/Noel Pulse Ox Last 24 Hr 96.6 F-98.7 F 55-73 12-20 109-164/74-90 92-98 General appearance: normal weight, no acute distress - Head Head exam: Present: normal inspection, normocephalic - Eye Eye exam: Present: other (lids and conjunctiva unremarkable). Absent: scleral icterus - ENT ENT exam: Present: normal exam, normal oropharynx - Neck Neck exam: Present: normal inspection - Respiratory Respiratory exam: Present: clear to auscultation bilaterally. Absent: rales, rhonchi, wheezes - Cardiovascular Cardiovascular exam: Present: regular rate and rhythm. Absent: diastolic murmur , JVD, systolic murmur - GI/Abdominal GI/Abdominal exam: Present: normal bowel sounds, soft. Absent: ascites, distended, mass, organomegaly, tenderness - Extremities Exam Extremities exam: Present: normal inspection, full ROM - Back Exam Back exam: Present: normal inspection - Neurological Exam Neurological exam: Present: alert, oriented X3 - Psychiatric Psychiatric exam: Present: normal affect, normal mood - Skin Skin exam: Present: normal color, warm, dry Results - Labs CBC & BMP: 08/10/16 05:37 08/10/16 05:37 Lab Results: I have reviewed the past 24 hour labs
[2016-08-10] MEDS: TAMSULOSIN 0.4 MG CAPSULE PO SCH ×2 (10:26→20:53)
[2016-08-10] MEDS: PANTOPRAZOLE 40 MG TABLET PO SCH (10:26)
[2016-08-10] MEDS: FAMOTIDINE 20 MG/2 ML VIAL IV SCH ×2 (10:27→21:47)
[2016-08-10] MEDS: LINACLOTIDE 145 MCG CAPSULE PO SCH (10:28)
[2016-08-10] MEDS: oxyCODONE/ACETAMINOPHEN 5-325 MG TABLET PO PRN ×2 (10:35→22:22)
--- NOTE | 2016-08-10 10:51 | Hospitalist Progress Note ---
Assessment and Plan - Time spent with patient Time spent with patient: Greater than 30 minutes (1) Chronic anticoagulation Status: Acute Assessment and plan: History of PE. Holding anticoagulation. Apparently the patient said a repeat CT of his chest was negative for PE. Will ask Dr Cuevas about this. Repeat US or right UE to assess clearance of clot. Current Visit: Yes (2) Lower GI bleed Status: Acute Assessment and plan: Stable, no recurrence. Current Visit: Yes Hospitalist: Subjective Interval history: No complaints or overnight events. Exam - Constitutional Vitals: Period Temp Pulse Resp BP Sys/Noel Pulse Ox Last 24 Hr 96.6 F-98.7 F 55-73 12-20 109-164/74-90 92-98 General appearance: normal weight, no acute distress - Head Head exam: Present: normocephalic, atraumatic - Eye Eye exam: Present: EOMI Pupils: Present: TD - ENT ENT exam: Present: normal exam - Neck Neck exam: Present: normal inspection - Respiratory Respiratory exam: Present: clear to auscultation bilaterally. Absent: rhonchi, wheezes - Cardiovascular Cardiovascular exam: Present: regular rate and rhythm. Absent: gallop, rubs, systolic murmur - GI/Abdominal GI/Abdominal exam: Present: normal bowel sounds, soft. Absent: distended, firm , guarding, tenderness, rebound - Extremities Exam Extremities exam: Present: normal inspection. Absent: calf tenderness, edema Results - Labs CBC & BMP: 08/10/16 05:37 08/10/16 05:37 Lab Results: I have reviewed the past 24 hour labs Quality Measures - VTE Contraindication to Pharmacological VTE Prophylaxis: Already on Theraputic Agent , No Prophylaxis Needed - Stroke Symptom Onset Unknown: No
--- NOTE | 2016-08-10 11:44 | Ultrasound Report ---
US venous doppler UE RT Indication: History of right upper extremity clot. Comparison: None. Technique: Grayscale, spectral, and color Doppler interrogation of the right upper extremity veins was performed. Augmentation and compression was performed. Findings: Grayscale, color Doppler, and pulsed Doppler evaluation of the veins of the right upper extremity demonstrates no evidence of deep venous thrombosis. IMPRESSION: No evidence of deep venous thrombosis in the right upper extremity. PROCEDURE INTERPRETED AT [facility] DEPARTMENT OF RADIOLOGY Final Report Signed by: Dr Daren Hernandez
--- NOTE | 2016-08-10 20:24 | Cardiology Consult Note ---
Ovidio Rivas Vanessa, RN, am scribing for, and in the presence of, Suzette Pickard MD 17:12. Assessment and Plan - Time spent with patient Time spent with patient: Greater than 30 minutes (Due to assessment, planning, documentation, medication review) (1) History of pulmonary embolus (PE) Status: Chronic Assessment and plan: SEE PLAN OF CARE LISTED BELOW. Current Visit: Yes (2) History of DVT (deep vein thrombosis) Status: Chronic Assessment and plan: SEE PLAN OF CARE LISTED BELOW. Current Visit: Yes (3) Chronic anticoagulation Status: Chronic Assessment and plan: SEE PLAN OF CARE LISTED BELOW. Current Visit: Yes (4) Lower GI bleed Status: Acute Assessment and plan: SEE PLAN OF CARE LISTED BELOW. Current Visit: Yes (5) Anxiety and depression Status: Chronic Assessment and plan: SEE PLAN OF CARE LISTED BELOW. Current Visit: No (6) BPH (benign prostatic hypertrophy) Status: Chronic Assessment and plan: SEE PLAN OF CARE LISTED BELOW. Current Visit: No (7) Chronic pain in right foot Status: Chronic Assessment and plan: SEE PLAN OF CARE LISTED BELOW. Current Visit: No (8) Hypertension Status: Chronic Assessment and plan: SEE PLAN OF CARE LISTED BELOW. 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 JACOB CUEVAS PCP: DR. ASH CARDIOLOGY CONSULT NOTE: GI BLEED, HISTORY OF PULMONARY EMBOLUS ON COUMADIN THERAPY Mr. Gurrola is a 71 year old white male past medical history including hypertension, BPH, and anxiety. In April 2016 he underwent right rotator cuff surgery per Dr. Nelson Woodard, and one week later he presented to the hospital with right upper extremity DVT and subsequent bilateral subsegmental pulmonary emboli. He had no evidence of RV overload and he was not treated with local thrombolysis and ultrasound therapy (EKOS). He responded well to conservative treatment. EKG was consistent with normal right-sided dimensions. Patient also had a right lower lobe pulmonary infection he was recovering from. Initially started on Xarelto, and due to complaints of indigestion, he was switched to Savaysa on June 07. At follow-up visit with Dr. Cuevas in clinic on July 07, Coumadin 5 mg by mouth daily was initiated, and patient was instructed to stop Savaysa 3 days after starting Coumadin therapy. Patient had not experienced any bleeding difficulties, and he has been following with [facility] for routine PT/INR checks. On July 28, INR was 4.3, and Coumadin was held 1 week, and follow-up INR 3.3 on August 05. Coumadin dosage changed to 5 mg by mouth daily with the exception of Tuesday, , and Tuesday with dosage of 2.5 mg by mouth. Recent chest x-ray showed a right lower lung density which felt to be related to pulmonary infarction. CT scan was to be performed in 3 months. Patient presented to [facility] ED on the evening of August 06 with complaints of bright red bleeding per rectum and vertigo/dizziness earlier that day. Coumadin was held. INR at admission 2.7. H&H 14.2 and 41.0. Gastroenterology evaluated patient, and patient underwent colonoscopy on August 09. Endoscopy revealed diverticulosis coli which appears to have been the likely source of his bleeding and also showed internal hemorrhoids. Recommended that Coumadin be held for at least an additional 96 hours. Currently, patient's H&H is stable at 13.3 and 39.0, and INR is at 1.5. He has not required transfusion. There has been no further bleeding. Patient is hesitant at idea of reinitiating Coumadin therapy. Cardiology has been consulted for further evaluation. Follow-up chest CT has been scheduled as outpatient on September 23, 2016. Upon exam, patient is awake and alert. He is sitting up in bedside chair in no acute distress. He denies further bleeding since night of admission. No chest pain, shortness of breath, dizziness, palpitation, or other complaint. He has had no abdominal pain. Venous Doppler ultrasound of right upper extremity negative for DVT finding today. Patient is anxious for discharge home, but he is very hesitant at restarting Coumadin upon discharge. He does have a Coumadin clinic appointment already scheduled for August 12 at 9:45 AM. He also reports that since he has started anticoagulation therapy, he has noticed extreme fatigue with minimal energy. He did state that he had previous weight loss approximately 10 pounds, but after drinking boost 2 daily, he has regained the weight that he lost. Blood pressure 140/70. O2 saturation 99% on room air. Pulse is 60s and regular. No recent cough, fever, chills. No orthopnea, PND, palpitation. ASSESSMENT/PLAN: 1. LOWER GI BLEED - This appears to have resolved and is contributed to diverticulosis coli / internal hemorrhoids per colonsocopy on August 09. 2. CHRONIC ANTICOAGULATION WITH COUMADIN - Coumadin held since admission on . INR currently 1.5 3. HISTORY OF DVT/PULMONARY EMBOLI - Venous doppler US of RUE today negative for DVT finding. No clinical findings for recurrence of PE at this time. 4. HYPERTENSION - Chronic and well controlled at this time. I discussed this case with Dr. Ferraro. His main question was about finding the chest CT that he believed had been done on an outpatient basis. I have reviewed the clinic notes and discussed this with the patient, there does not appear to have been a follow-up CT performed. There was one that was going to be scheduled for 3 months from the last clinic date. In brief the patient has been treated for 3 months with anticoagulation for upper extremity DVT complicated by pulmonary embolism. This therapy is now interrupted due to significant GI bleeding from a diverticular bleed. In general the patient believes he feels very poorly on all the anticoagulants would like to stop. There is no residual right upper extremity DVT. A CT of the chest is going to be ordered by the hospitalist service to determine any residual pulmonary embolism burden. In general, I would defer her the risks versus benefit analysis to the hospitalist or ribbon tier in terms of whether or not to resume his anticoagulation therapy. CC: Briana Ferraro MD - Home Medications and Allergies Home Medications: Home Medications Medication Instructions Recorded Confirmed Type ALPRAZolam [Xanax] 1 mg PO TID PRN 07/22/14 08/06/16 History Oxycodone HCl/Acetaminophen 1 each PO Q6H PRN 07/22/14 08/06/16 History [Percocet 10-325 mg Tablet] Linaclotide [Linzess] 290 mcg PO DAILY 05/15/16 08/06/16 History Tamsulosin [Flomax] 0.4 mg PO BID 05/15/16 08/06/16 History Warfarin [Coumadin] 2.5 mg PO TUTHSA 08/06/16 08/09/16 History Warfarin [Coumadin] 5 mg PO SUMOWEFR 08/06/16 08/09/16 History Allergies/Adverse Reactions: Allergies Allergy/AdvReac Type Severity Reaction Status Date / Time Penicillins Allergy Verified 11/14/15 09:52 - Constitutional Constitutional: Present: as per HPI - EENT Eyes: Present: as per HPI Ears: Present: as per HPI Nose, mouth and throat: Present: as per HPI - Cardiovascular Cardiovascular: Present: as per HPI - Respiratory Respiratory: Present: as per HPI - Gastrointestinal Gastrointestinal: Present: as per HPI - Genitourinary Genitourinary: Present: as per HPI - Musculoskeletal Musculoskeletal: Present: as per HPI - Neurological Neurological: Present: as per HPI - Psychiatric Psychiatric: Present: as per HPI - Endocrine Endocrine: Present: as per HPI - Hematologic/Lymphatic Hematologic/Lymphatic: Present: as per HPI Medical,Surgical,& Family Hx - Medical History Cardio: No history of: CAD, Hypertension, ND, PVD Psychological: History of: Anxiety Disorders Neurology: No history of: Seizures HEENT: History of: Eye Problem (cataracts removed), HEENT Problems (sinus; polyps in nose) Endocrine: History of: Endocrine Problems (hypoglycemia) No history of: Diabetes Mellitus (IDDM), Diabetes Mellitus (NIDDM), Dyslipidemia, Thyroid Disorder Respiratory: History of: Pulmonary Embolism No history of: Obstructive Sleep Apnea, Pulmonary Hypertension Genitourinary: History of: Prostate Problems (BPH) Gastrointestinal: History of: Diverticulitis/ Diverticulosis, GERD, Hemorrhoids Comment Only: GI Problems (hiatal hernia) Musculoskeletal: History of: Back/Neck Problems, Musculoskeletal Problems ( crushed right foot) Hematology: History of: Bleeding Problems No history of: Anemia Other: No history of: Anesthesia Reactions - Surgical History Cardiac Surgeries: Patient Denies: Cardiac Catheterization HEENT Surgeries: Surgical HX of: Eye Surgery (cataracts), Tonsilectomy & Adenoidectomy Patient denies: Thyroid Surgery Abdominal Surgeries: Surgical HX of: Appendectomy, Cholecystectomy, Colonoscopy Patient denies: EGD Reproductive Surgeries: Patient denies;: Prostate Surgery Orthopedic Surgeries: Surgical HX of;: Orthopedic Surgery (rtc repair left shoulder) - Family History Family History: Reports;: Family Diabetes (daughter, father), Family Heart Disease (mother, father) Denies;: Family Anesthesia Reaction, Family Cancer, Family Hypertension, Family Psychiatric Problems, Family Stroke - Social History Smoking Status: Never smoker Frequency of Alcohol Use: None Type of Drug Use: None Physical Examination Vital Signs Temp Pulse Resp BP Pulse Ox 98.4 F 65 16 145/87 95 08/06/16 16:08 08/06/16 16:08 08/06/16 16:08 08/06/16 16:08 08/06/16 16:08 Other: General appearance: normal weight, no acute distress - Head Head exam: Present: normal inspection, normocephalic, atraumatic. Absent: hematoma, laceration - Eye Eye exam: Present: EOMI. Absent: conjunctival injection, nystagmus, periorbital swelling, scleral icterus, laceration to eyelids Pupils: Present: PERRL. Absent: constricted, dilated, fixed, irregular, unequal - ENT ENT exam: Present: normal exam, normal external ear exam - Neck Neck exam: Present: normal inspection. Absent: lymphadenopathy, meningismus, tenderness, thyromegaly - Respiratory Respiratory exam: Present: clear to auscultation bilaterally. Absent: accessory muscle use, chest wall tenderness - Cardiovascular Cardiovascular exam: Present: regular rate and rhythm. Absent: carotid bruit, gallop, JVD, rubs - GI/Abdominal GI/Abdominal exam: Present: normal bowel sounds, soft. Absent: distended, firm , guarding, hernia, mass, tenderness, rebound. - Extremities Exam Extremities exam: Present: normal inspection, normal capillary refill. Absent: calf tenderness, edema - Back Exam Back exam: Present: normal inspection. Absent: muscle spasm, vertebral tenderness - Neurological Exam Neurological exam: Present: alert, oriented X3, grossly intact without resting or intention tremor - Psychiatric Psychiatric exam: Present: normal affect, normal mood - Skin Skin exam: Present: normal color, warm, dry, intact. Absent: cyanosis, diaphoretic, rash, urticaria Result/EKG - Labs CBC & BMP: 08/10/16 05:37 08/10/16 05:37 Lab Results: I have reviewed the past 24 hour labs Labs: Laboratory Results - last 24 hr 08/10/16 08/10/16 05:37 05:37 WBC 7.4 RBC 4.47 Hgb 13.3 L Hct 39.0 L MCV 87.2 MCH 30 MCHC 34.1 RDW 13.3 Plt Count 204 MPV 11.2 Neut % (Auto) 59.4 Lymph % (Auto) 27.6 [place] % (Auto) 7.6 Eos % (Auto) 4.2 Baso % (Auto) 0.8 Neut # (Auto) 4.4 Lymph # (Auto) 2.0 [place] # (Auto) 0.6 Eos # (Auto) 0.3 Baso # (Auto) 0.1 Immature Gran % 0.4 Nucleated RBC % 0.0 Immature Gran # 0.03 Nucleated RBCs # 0.00 Sodium 143 Potassium 3.7 Chloride 109 H Carbon Dioxide 27 Anion Gap 10.7 BUN 11 Creatinine 1.20 GFR Calculation 71 BUN/Creatinine Ratio 9.00 Glucose 88 Calculated Osmolality 282.0 Calcium 8.6 - Diagnostic Findings Procedure: Chest x-ray: image reviewed by me, report reviewed by me - EKG EKG results: interpreted by me, no acute changes EKG shows: sinus rhythm Quality Measures - VTE Contraindication to Pharmacological VTE Prophylaxis: Already on Theraputic Agent , No Prophylaxis Needed - Stroke Symptom Onset Unknown: No I, Suzette Pickard MD, personally performed the services described in this documentation, ascribed by Maria Esther Nolan RN in my presence, and it is both accurate and complete .
[2016-08-10] MEDS: ALPRAZolam 0.5 MG TABLET PO PRN (22:22)
[2016-08-11] MEDS: LINACLOTIDE 145 MCG CAPSULE PO SCH (09:46)
[2016-08-11] MEDS: PANTOPRAZOLE 40 MG TABLET PO SCH (09:46)
[2016-08-11] MEDS: FAMOTIDINE 20 MG/2 ML VIAL IV SCH (09:46)
[2016-08-11] MEDS: TAMSULOSIN 0.4 MG CAPSULE PO SCH (09:46)
[2016-08-11] MEDS: ALPRAZolam 0.5 MG TABLET PO PRN (09:49)
[2016-08-11] MEDS: oxyCODONE/ACETAMINOPHEN 5-325 MG TABLET PO PRN (09:49)
--- NOTE | 2016-08-11 10:05 | Gastrointestinal Progress Note ---
Assessment and Plan (1) Lower GI bleed Status: Acute Assessment and plan: 08/11-no overt bleeding. Coumadin to be resumed 3 month as well as Lovenox 1 week. To follow with Dr. Cuevas after discharge. Plan an addendum to followed by Dr. Barger. 08/10-No further bleeding, hgb stable at 13.3, INR 1.5. Coumadin on hold. Plan and addendum to follow by Dr Barger. Current Visit: Yes Gastroenterology - PN: Subj Interval history: CC: GI bleed Patient is seen awake alert sitting on side of bed with spouse at side. States he is feeling better today. Denies any abdominal pain, nausea or vomiting. Denies any overt bleeding however he has not had a bowel movement as of yet. Patient was consulted by Dr. Pickard regarding his history of blood clots and his Coumadin therapy. Patient states that they were able to locate his repeat chest CT with no findings of PE. Patient also states that they will continue him on his Coumadin therapy for 3 more months and Lovenox injections at home 1 week. Discussed with patient that upon resuming his anticoagulants if he notices any overt bleeding or dark stools he needs to hold his anticoagulants and report to the ER for further evaluation. Abdomen is soft, nontender. Anticoagulants to be resumed on Tuesday. ROS: Denies shortness of breath or chest pain Exam (Progress Note) - Constitutional Vitals: Period Temp Pulse Resp BP Sys/Noel Pulse Ox Last 24 Hr 97.5 F-98.3 F 59-75 18-20 104-143/67-86 93-99 - Other Additional findings: General appearance: normal weight, no acute distress - Head Head exam: Present: normal inspection, normocephalic - Eye Eye exam: Present: other (lids and conjunctiva unremarkable). Absent: scleral icterus - ENT ENT exam: Present: normal exam, normal oropharynx - Neck Neck exam: Present: normal inspection - Respiratory Respiratory exam: Present: clear to auscultation bilaterally. Absent: rales, rhonchi, wheezes - Cardiovascular Cardiovascular exam: Present: regular rate and rhythm. Absent: diastolic murmur , JVD, systolic murmur - GI/Abdominal GI/Abdominal exam: Present: normal bowel sounds, soft. Absent: ascites, distended, mass, organomegaly, tenderness - Extremities Exam Extremities exam: Present: normal inspection, full ROM - Back Exam Back exam: Present: normal inspection - Neurological Exam Neurological exam: Present: alert, oriented X3 - Psychiatric Psychiatric exam: Present: normal affect, normal mood - Skin Skin exam: Present: normal color, warm, dry Results - Labs CBC & BMP: 08/10/16 05:37 08/10/16 05:37 Lab Results: I have reviewed the past 24 hour labs
--- NOTE | 2016-08-11 12:28 | Discharge Summary ---
Hospital Course - Hospital Course Hospital Course: Mr. Gurrola is a 71-year-old male who presented with lower GI bleed. Patient was on warfarin for history of PE which was noted 3 months earlier. His warfarin was held at admission and gastroenterology was consulted. Patient received a scope which revealed diverticulosis and internal hemorrhoids. It was felt his diverticulosis was the source of his bleed. Recommendations were noted regarding when to continue anticoagulation and these instructions were conveyed to the patient. Patient will require Lovenox injections at the time of initiation of warfarin. I will provide a prescription for 5 days. - Time spent with patient Time with patient DS: Greater than 30 minutes Diagnosis - Discharge Diagnosis (1) Chronic anticoagulation Status: Chronic (2) Lower GI bleed Status: Acute Discharge Plan - Discharge Data Disposition: Disch To Home/Self Care Condition at Discharge: Stable Discharge Diet: advance to your usual diet Activity: resume usual activities as tolerated - Discharge Medications New Enoxaparin [Lovenox] 80 mg SUBCUT Q12H #10 syringe Continue ALPRAZolam [Xanax] 1 mg PO TID PRN PRN Reason: Anxiety Oxycodone HCl/Acetaminophen [Percocet 10-325 mg Tablet] 1 each PO Q6H PRN PRN Reason: Pain Tamsulosin [Flomax] 0.4 mg PO BID Linaclotide [Linzess] 290 mcg PO DAILY Warfarin [Coumadin] 5 mg PO SUMOWEFR #0 tablet Warfarin [Coumadin] 2.5 mg PO TUTHSA #0 tablet - Follow Up or Referral - Forms/Instructions Exam - Constitutional Vitals: Period Temp Pulse Resp BP Sys/Noel Pulse Ox Last 24 Hr 97.5 F-98.3 F 56-75 18-20 104-143/66-86 93-99 General appearance: normal weight, no acute distress - Head Head exam: Present: normal inspection, normocephalic, atraumatic - Eye Eye exam: Present: EOMI Pupils: Present: TD - ENT ENT exam: Present: normal exam - Neck Neck exam: Present: normal inspection - Respiratory Respiratory exam: Present: clear to auscultation bilaterally. Absent: accessory muscle use, prolonged expiratory phase, wheezes - Cardiovascular Cardiovascular exam: Present: regular rate and rhythm. Absent: bradycardia, irregular rhythm, systolic murmur - GI/Abdominal GI/Abdominal exam: Present: normal bowel sounds. Absent: ascites, distended, hypoactive bowel sounds, tenderness - Extremities Exam Extremities exam: Present: normal inspection DS: Provider Date of admission: 08/06/16 18:02 Primary care physician: . No PCP Attending physician on admission: Regis Irizarry MD Consults: 08/06/16 19:31 Consult to Physician [CONS] Routine Comment: rectal bleeding Consulting Provider: Lincoln Barger Consulting Provider Notified: Yes Person Notified: Dr. Young Date Notified: 08/07/16 Time Notified: 08:20 Consult Notification Comment: spoke with Dr. Hector barger consulted on tuesday08/10/16 13:11 Consult to Physician [CONS] Routine Comment: Hx of PE, Gi bleed, anticoagulation? Consulting Provider: Cardiology - [facility] Consult to Specialist Group: Cardiology Person Notified: [email or web address] Date Notified: 08/10/16 08/11/16 10:34 Consult to Case Mgmt/Social Srvs [CONS] Routine Reason for Case Mgmt/Social Srvs: Discharge Planning Consult Comment: please arrange lovenox 80mg subcut BID for 5 days Discharging clinician: Briana Ferraro MD Expected date of discharge: 08/11/16
[2016-08-11 12:58] VITALS: BP 121/59
== END 2016-08-11 15:10 | disposition home or self-care (01) | DRG 379 ==
LOC: MERGE 15:59 → N.ED 15:59 → N.EDINP 18:14 → SUATTDRO 18:14 → N.2E 18:22
PROVIDERS: ADMIT Student in an Organized Health Care Education/Training Program; ATTEND Internal Medicine